=== PATIENT | male | born 1985 | race American Indian/Alaskan Native ===

== ENCOUNTER 2017-07-12 21:35 | Emergency (ER) | payer MEDICAID, OTHER ==
[2017-07-12 22:47] VITALS: BP 139/88
[2017-07-13] MEDS ORDERED: Ibuprofen 600 MG Tab PO ONE (00:09)
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
[2017-07-13] MEDS: Amoxicillin 500 MG Cap PO ONE (00:15)
== END 2017-07-13 00:20 | disposition home or self-care (01) ==
LOC: DL.ED 21:35
DX: H65.01 Acute serous otitis media, right ear (principal); F17.210 Nicotine dependence, cigarettes, uncomplicated
CPT/HCPCS: 99282; A9270